=== PATIENT | male | born 1985 | race Caucasian/White ===

== ENCOUNTER 2020-10-08 14:54 | Emergency (ER) | payer BC ==
[~2020-10-08] VITALS: Ht 172.7 cm; Wt 81.6 kg
[2020-10-08 14:54] VITALS: BP 151/106
--- NOTE | 2020-10-08 15:00 | NUR ---
sent by Dr Lovelace for sorethroat x 2 years, worse last 2 weeks. Patient a/ox4, breathing even and unlabored, no sob noted. Needs attended.
--- NOTE | 2020-10-08 16:13 | NUR ---
DPatient discharged to home in stable condition. Written and verbal after care instructions given. Patient verbalizes understanding of instruction.
== END 2020-10-08 16:14 | disposition home or self-care (01) ==
LOC: ER 14:58
DX: J02.9 Acute pharyngitis, unspecified (principal); I10 Essential (primary) hypertension; Z88.0 Allergy status to penicillin